=== PATIENT | male | born 1965 ===

== ENCOUNTER 2020-08-02 14:28 | Outpatient (REF) | payer BC, SELFPAY ==
[2020-08-06 11:53] LABS: SARS-CoV-2 RNA Not Detected (NotDetected); SARS-CoV-2 RNA Source Nasal/Nares
== END 2020-08-02 14:48 ==
LOC: NCHCN 14:28
PROVIDERS: Visit Provider Family Medicine
DX: Z20.828 Contact with and (suspected) exposure to other viral communicable diseases (principal)
CPT/HCPCS: U0003